=== PATIENT | female | born 1995 | race African-American/Black ===

== ENCOUNTER 2021-05-30 14:34 | Emergency (ER) | payer OTHER ==
[~2021-05-30] VITALS: Ht 175.3 cm; Wt 113.6 kg
[2021-05-30 14:35] VITALS: BP 132/75
== END 2021-05-30 17:09 | disposition home or self-care (01) ==
LOC: EMS 14:48
DX: J06.9 Acute upper respiratory infection, unspecified (principal); R07.89 Other chest pain; Z20.822 Contact with and (suspected) exposure to COVID-19
CPT/HCPCS: 71045; 99284; U0003